=== PATIENT | female | born 1975 | race Caucasian/White ===

== ENCOUNTER 2019-08-24 11:19 | Emergency (ER) | payer OTHER, SELFPAY ==
[~2019-08-24] VITALS: Ht 172.7 cm; Wt 83.5 kg
[2019-08-24 11:27] VITALS: BP 123/49
[2019-08-24] MEDS ORDERED: NACL 0.9% 1,000 ML IV ONE (11:50)
[2019-08-24] MEDS ORDERED: KETOROLAC 15 MG/ML VIAL IVP ONE (11:50)
[2019-08-24] MEDS ORDERED: ONDANSETRON 4 MG/2 ML VIAL IVP ONE (11:50)
[2019-08-24 12:15] LABS: APPEARANCE,URINE CLEAR (CLEAR); BILIRUBIN,URINE NEGATIVE (NEGATIVE); BLOOD, URINE 3+ (NEGATIVE); COLOR,URINE YELLOW (YELLOW); LEUKOCYTE ESTERASE ,URINE NEGATIVE (NEGATIVE); NITRITE, URINE NEGATIVE (NEGATIVE); PH,URINE 5.5 (5.0-9.0); UGLUCOSE NEGATIVE (NEGATIVE)
[2019-08-24 12:23] LABS: BASOPHILS % (AUTO) 0.8 % (0.0-2.0); EOSINOPHILS % (AUTO) 1.3 % (0.0-4.0); HEMATOCRIT 40.1 % (36-48); HEMOGLOBIN 13.4 g/dL (12.0-16.0); LYMPHOCYTES # (AUTO) 1.1 K/uL (2.5-16.5); MEAN CORPUSCULAR HEMOGLOBIN 30 pg (27-31); MEAN CORPUSCULAR HGB CONC 34 g/dL (33-37); MEAN CORPUSCULAR VOLUME 90.3 fL (80-94); MONOCYTES # (AUTO) 0.3 K/uL (0.8-1.0); MONOCYTES % (AUTO) 8.9 % (1.7-9.3); PLATELET COUNT (AUTO) 241 K/uL (140-450); RED BLOOD CELL COUNT(AUTO) 4.45 MIL/uL (4.20-5.40); WHITE BLOOD COUNT (AUTO) 3.6 K/uL (4.8-10.8)
[2019-08-24 12:28] LABS: ALBUMIN 3.5 g/dL (3.4-5.0); ANION GAP 10.3 (8-16); CARBON DIOXIDE 27.8 mmol/L (21-32); CREATININE 0.8 mg/dL (0.6-1.3); POTASSIUM 4.1 mmol/L (3.5-5.1); TOTAL BILIRUBIN 0.4 mg/dL (0.0-1.0)
[2019-08-24 12:46] LABS: WBC,URINE 0-5 /HPF (0-5)
[2019-08-24 15:18] VITALS: BP 107/65
== END 2019-08-24 15:16 | disposition home or self-care (01) ==
LOC: EEVIPCON 11:19 → MED 11:19
DX: R10.9 Unspecified abdominal pain (principal); Z20.828 Contact with and (suspected) exposure to other viral communicable diseases; M54.9 Dorsalgia, unspecified; K59.00 Constipation, unspecified; D72.818 Other decreased white blood cell count
CPT/HCPCS: 36415; 74176; 80053; 81001; 83690; 84703; 85025; 87635; 96374; 96375; 99284; J1885; J2405; J7030